=== PATIENT | male | born 1970 | race Two or more races ===

== ENCOUNTER 2018-06-09 12:17 | Emergency (ER) | payer MEDICAID ==
[~2018-06-09] VITALS: Ht 180.3 cm; Wt 85.3 kg
[2018-06-09 12:19] VITALS: Ht 180.3 cm; Wt 85.3 kg
[2018-06-09 14:20] VITALS: BP 108/73
== END 2018-06-09 14:38 | disposition home or self-care (01) ==
LOC: ED 12:17
DX: S29.8XXA Other specified injuries of thorax, initial encounter (principal); W18.30XA Fall on same level, unspecified, initial encounter; Y93.89 Activity, other specified; Y92.89 Other specified places as the place of occurrence of the external cause; Y99.8 Other external cause status
CPT/HCPCS: J1885

== ENCOUNTER 2019-07-10 15:12 | Emergency (ER) | payer OTHER ==
[~2019-07-10] VITALS: Ht 180.3 cm; Wt 87.5 kg
[2019-07-10 15:23] VITALS: Ht 180.3 cm; Wt 87.5 kg
[2019-07-10 17:24] VITALS: BP 102/75
== END 2019-07-10 18:11 | disposition home or self-care (01) ==
LOC: ED 15:12
DX: L02.811 Cutaneous abscess of head [any part, except face] (principal); J40 Bronchitis, not specified as acute or chronic
CPT/HCPCS: J2001

== ENCOUNTER 2019-07-12 10:27 | Emergency (ER) | payer OTHER ==
[~2019-07-12] VITALS: Ht 180.3 cm; Wt 87.5 kg
[2019-07-12 10:41] VITALS: Ht 180.3 cm; Wt 87.5 kg
[2019-07-12 11:34] VITALS: BP 115/82
== END 2019-07-12 11:34 | disposition home or self-care (01) ==
LOC: ED 10:27
DX: L02.01 Cutaneous abscess of face (principal)